=== PATIENT | female | born 1990 | race Caucasian/White ===

== ENCOUNTER 2022-07-24 06:44 | Inpatient (IN) ==
--- NOTE | 2022-07-10 12:01 | PAT Medication Instructions ---
Medication Instructions Date of Service July 10, 2022 Home Medications bupropion HCl 300 mg 24 hr tablet, extended release (Wellbutrin XL) 300 mg PO QAM escitalopram oxalate 10 mg tablet (Lexapro) 10 mg PO QAM Take morning of surgery With a small sip of water, OTHERWISE NOTHING TO EAT OR DRINK AFTER MIDNIGHT: bupropion HCl 300 mg 24 hr tablet, extended release (Wellbutrin XL) 300 mg PO QAM escitalopram oxalate 10 mg tablet (Lexapro) 10 mg PO QAM Other Notes If you have any questions please call us at [phone] or [phone] or [phone] or [phone]
--- NOTE | 2022-07-13 13:31 | Anesthesiology Consultation ---
Date of Service July 13, 2022 Assessment & Plan (1) Encounter for pre-operative examination: Chart Review Chart Review: Acceptable Risk for Surgery and Patient seen in Pre Admission Testing Egg allergy - anaphylactic reaction - Check test AM DOS Per PAT appt on 07/13/22, patient denies any recent travel or large group activities. Pt is vaccinated for Covid. Will leave to surgeon's discretion if preop Covid testing needed. Educated on importance of using Covid precautions one week prior to surgery Teaching & Discussion Pre-Anesthesia Teaching/Discussion Notes: Instructed NPO after midnight before surgery,except medications with 15 cc of water. Medication instructions provided according to the PAT guidelines. History Surgery Operation Date: 07/24/22 11:00 Proposed Procedures p Total Abdominal Hysterectomy, Preserve The Ovaries - Humberto Durham MD Height/Weight Height: 5 ft 8 in Weight: 97.1 kg Allergies Allergy/AdvReac Type Severity Reaction Status Date / Time Beef Containing Products Allergy Anaphylaxis Verified 07/10/22 10:50 chicken derived Allergy Anaphylaxis Verified 07/10/22 10:52 egg Allergy Anaphylaxis Verified 07/10/22 10:52 fish derived Allergy Anaphylaxis Verified 07/10/22 10:52 gelatin Allergy Anaphylaxis Verified 07/10/22 10:52 paroxetine [From Paxil] Allergy Hives Verified 07/10/22 10:49 peanut Allergy Anaphylaxis Verified 07/10/22 10:52 Penicillins Allergy Hives Verified 07/10/22 10:49 Sulfa (Sulfonamide Allergy Hives Verified 07/10/22 10:49 Antibiotics) Medications Home Medications Medication Instructions Recorded Confirmed Last Taken bupropion HCl 300 mg 24 hr tablet, 300 mg PO QAM 07/10/22 07/10/22 Unknown extended release (Wellbutrin XL) escitalopram oxalate 10 mg tablet 10 mg PO QAM 07/10/22 07/10/22 Unknown (Lexapro) Past Medical History Medical History Anxiety and depression Cystocele Dysmenorrhea Frequent UTI No current issues IBS (irritable bowel syndrome) Menorrhagia Multiple food allergies Uterine fibroid Exercise / Class Metabolic Activity II 4-5 Yardwork/Stairs/Walk up hill (one flight of stairs - no chest pain or SOB ) Past Family History Family History Other No family history of adverse response to anesthesia Past Surgical History Surgical History History of colonoscopy History of tubal ligation History of wisdom tooth extraction Past Anesthesia History No Hx of Anesthesia Complications and No Family Hx of Anesthesia Complications History of PONV No Hx of PONV and No Hx of Motion Sickness Social History Smoking Status: Never smoker Do You Dip or Chew Tobacco: No Hx Alcohol Use: Yes alcohol intake frequency: holidays/special occasions only Hx Substance Use: Yes substance use type: marijuana Substance Use Type Other:: medical marijuana card Review of Systems Patient denies chest pain, shortness of breath, dyspnea on exertion, reflux, cough, wheezing, palpitations. No hx of seizures, stroke, MD, apnea/snoring. No hx of blood clots or blood transfusions Physical Exam Vital Signs VITALS BP 128/80 P 91 TEMP 98.5 SP02 97% RESP 16 Constitutional no acute distress ENMT Mouth: no TMJ clicking Thyromental Distance: < 3.5 Finger Breadths (3.0) Mallampati Class: I Neck neck extension not limited Respiratory normal respiratory effort; no respiratory distress Auscultation: lungs clear to auscultation bilaterally; no wheezes Cardiovascular Rate/Rhythm: regular rate and regular rhythm Heart Sounds: no murmur Vessels: no carotid bruit Musculoskeletal Spine: no pain with cervical ROM Extremities: extremities normal to inspection Psychiatric Orientation: alert Lab Results Anesthesia Preop Results Results Anesthesia Widget: WBC 6.63 K/ul (4.8-10.8) 07/13/22 Hgb 14.0 g/dl (12.0-16.0) 07/13/22 Hct 38.7 % (37.0-47.0) 07/13/22 Plt 195 K/uL (130-400) 07/13/22 Na 138 mmol/L (136-145) 07/13/22 K 3.5 mmol/L (3.5-5.1) 07/13/22 Cl 107 mmol/L (98-107) 07/13/22 CO2 26 mmol/L (21-32) 07/13/22 BUN 10 mg/dl (6-23) 07/13/22 Creat 0.74 mg/dl (0.6-1.2) 07/13/22 Glucose Level 140 mg/dl (70-99(Fasting)) H 07/13/22 PT 11.2 Seconds (9.0-12.0) 07/13/22 PTT 28.1 Seconds (21.0-31.0) 07/13/22 INR 1.1 (0.9-1.1) 07/13/22 Blood Type A Negative 07/13/22 Antibody Screen NEGATIVE 07/13/22 COVID-19 Risk Screen Screening Information COVID-19 Screen Date: 07/13/22 Exposure 21 Days Family/Household +COVID Last 21 Days: No Exposure 10 Days Any COVID Exposure Last 10 Days: No Symptoms Last 10 Days Experienced COVID Sx Last 10 Days: No + COVID 0-90 Days COVID + in Last 0-90 Days: No Risk Plan COVID Risk Plan: No Risk Identified Patient Education COVID Preop Screening Education Complete: Yes
[~2022-07-24 06:44] MED LIST: ALLERGY Noted to ORDERED Medication SCH; CLINDAMYCIN/D5W 900 MG/50 ML BAG IV SCH; LACTATED RINGER'S 1,000 ML IV SCH; LR 15ML/HR IV SCH
[2022-07-24] MEDS ORDERED: BUPIVACAINE 0.25% PF 30 ML VIAL ONE (07:13)
--- NOTE | 2022-07-24 07:21 | History & Physical Bridge Note ---
Date of Service July 24, 2022 History & Physical Bridge Note I have examined the patient, reviewed the History & Physical and in the interval since the performance of the History & Physical I have noted the following changes of clinical significance: no changes noted
[2022-07-24] MEDS ORDERED: SCOPOLAMINE 1 MG TDSY TD ONE (07:24)
[2022-07-24] MEDS ORDERED: HEPARIN (PORCINE) 1000 UNIT/ML 10 ML (CATH LAB USE ONLY) ONE (07:49)
[2022-07-24] MEDS ORDERED: ROCURONIUM BROMIDE 10 MG/ML 5 ML VIAL IV ONE ×3 (07:52→09:39)
[2022-07-24] MEDS ORDERED: LIDOCAINE 2% MPF LOCAL 5 ML VIAL ONE (07:52)
[2022-07-24] MEDS ORDERED: PROPOFOL IV EMULSION 10 MG/ML 20 ML VIAL IV ONE (07:52)
[2022-07-24] MEDS ORDERED: DEXAMETHASONE SOD INJ 4 MG/ML VIAL ONE (07:55)
[2022-07-24] MEDS ORDERED: ONDANSETRON INJ 2 MG/ML 2 ML VIAL ONE ×3 (07:55→11:04)
[2022-07-24] MEDS ORDERED: ETOMIDATE 2 MG/ML 20 ML VIAL IV ONE (07:56)
[2022-07-24] MEDS ORDERED: diphenhydrAMINE 50 MG/ML VIAL ONE (07:58)
[2022-07-24] MEDS ORDERED: fentaNYL citrate PF 100 MCG/2 ML VIAL ONE (08:00)
[2022-07-24] MEDS ORDERED: MIDAZOLAM HCL 1 MG/ML 2ML VIAL ONE (08:00)
[2022-07-24] MEDS ORDERED: ACETAMINOPHEN 1000 MG/100 ML IV IV ONE (08:13)
[2022-07-24] MEDS ORDERED: FAMOTIDINE/PF 20 MG/2 ML VIAL IV ONE (08:13)
[2022-07-24] MEDS ORDERED: SUGAMMADEX SODIUM 200 MG/2 ML VIAL IV ONE (08:13)
[2022-07-24] MEDS ORDERED: FOSAPREPITANT DIMEGLUMINE 150 MG in SODIUM CHLORIDE 0.9% 145 ML IV SCH (08:15)
[2022-07-24] MEDS ORDERED: MoRPHine SULFATE PF 1 MG/ML 10 ML AMP/VIAL ONE (08:27)
[2022-07-24] MEDS ORDERED: ONDANSETRON INJ 2 MG/ML 2 ML VIAL IV PRN ×3 (08:46→13:39)
[2022-07-24] MEDS ORDERED: diphenhydrAMINE 50 MG/ML VIAL IV PRN (08:46)
[2022-07-24] MEDS ORDERED: NALOXONE HCL 1 MG in SODIUM CHLORIDE 0.9% 1000ML 1,000 ML IV PRN (08:46)
[2022-07-24] MEDS ORDERED: LACTATED RINGER'S 500 ML IV PRN (08:46)
[2022-07-24] MEDS ORDERED: MoRPHine SULFATE 2 MG/ML CARP IV PRN (08:46)
[2022-07-24] MEDS ORDERED: ePHEDrine sulfate 50 MG/ML AMP IV PRN ×2 (08:46→10:34)
[2022-07-24] MEDS ORDERED: NALBUPHINE HCL INJ 10 MG/ML AMP IV PRN (08:46)
[2022-07-24] MEDS ORDERED: MoRPHine SULFATE PF 1 MG/ML 10 ML AMP/VIAL INT SPINAL ONE (08:46)
[2022-07-24] MEDS ORDERED: PROMETHAZINE HCL 6.25 MG in SODIUM CHLORIDE 0.9% 50 ML IV PRN ×2 (08:46→10:34)
[2022-07-24] MEDS ORDERED: NALOXONE HCL 0.08 MG in SYRINGE 1.8 ML IV PRN (08:46)
[2022-07-24] MEDS ORDERED: NALOXONE HCL 0.4 MG/1 ML VIAL/CARP IV PRN (08:46)
[2022-07-24] MEDS ORDERED: HYDROmorphone INJ 0.5 MG/0.5 ML SYR IV PRN (08:46)
[2022-07-24] MEDS ORDERED: KETAMINE 50 MG/5 ML SYRINGE ONE (08:53)
[2022-07-24] MEDS ORDERED: SODIUM CHLORIDE 0.9% 1000ML 1,000 ML IV SCH (09:00)
[2022-07-24] MEDS ORDERED: APREPITANT 40 MG CAP PO SCH (09:00)
[2022-07-24] MEDS ORDERED: DC INTRASPINAL MORPHINE SCH (09:00)
[2022-07-24] MEDS ORDERED: NO NARCOTICS OR SEDATIVES SCH (09:00)
[2022-07-24] MEDS ORDERED: ARTIFICIAL TEARS OP OINT 3.5 GM TUBE ONE (09:50)
[2022-07-24] MEDS ORDERED: ATROPINE SULFATE 0.1 MG/ML 10ML SYR IV PRN (10:34)
[2022-07-24] MEDS ORDERED: METOCLOPRAMIDE HCL INJ 5 MG/ML 2 ML VIAL ONE (11:04)
[2022-07-24] MEDS ORDERED: KETOROLAC 30 MG/ML VIAL ONE ×2 (11:05)
[2022-07-24] MEDS ORDERED: SODIUM CHLORIDE 0.9% PF INJ 10 ML VIAL ONE (11:07)
--- NOTE | 2022-07-24 11:31 | Post Operative Brief Note ---
Immediate Post Op Note v1 Date of Surgery July 24, 2022 Pre & Post Diagnosis Operation Date: 07/24/22 08:20 Pre-Op Diagnosis: Right-sided labial mass, pelvic pain, heavy irregular vaginal bleeding, Fibroid Uterus Post-Op Diagnosis: Right-sided labial mass, pelvic pain, heavy irregular vaginal bleeding, Fibroid Uterus I identified the patient and participated in the time-out.: Yes Procedure Operation Date: 07/24/22 08:20 Actual Procedures p Total Abdominal Hysterectomy Bilateral Salpingectomy(Not Applicable) - Humberto Durham MD s Right Side Bartholin Cyst Removal(Right) - Humberto Durham MD Surgeon Humberto Durham MD Hand Spring Repairer nurse retail loan originator assistant Estimated Blood Loss 100 Findings See Below post tubal ligation endometriosis enlarged uterus Drains Loza Catheter and Dee Drain (1 inch ) Anesthesia Type General Regional Complications none
--- NOTE | 2022-07-24 12:01 | Operative Report (OR) ---
This is an operative notation of a marsupialization and packing of right-sided Bartholin cyst and tot al abdominal hysterectomy with suspension of the cuff and preservation of both ovaries. INDICATIONS FOR SURGERY: Painful mass in the right labia, hypermenorrhea, pelvic pain, dyspareunia. PREOPERATIVE DIAGNOSES: Suspected adenomyosis, suspected endometriosis. POSTOPERATIVE DIAGNOSIS: Pathology pending, endometriosis confirmed at the time of surgery. SURGEON: Daysi Durham MD LANDSCAPE ARTIST: public aid eligibility assistant. ESTIMATED BLOOD LOSS: 100 mL. ANESTHESIA: General with spinal narcotics. OPERATIVE FINDING AND PROCEDURE: The patient was brought to the OR table, correctly identified by asim fitzgerald and conversation. Spinal narcotic was administered. She was then given general anesthesia, pl aced in the candy cane stirrups. A right-sided Bartholin cyst of about 5 cm in diameter was easily v isualized. I made an incision right outside the hymenal ring, drained the cyst, sutured the edge of the opened area front to back with interrupted chromic gut suture, exteriorizing the lining of the cy st, used about 7 individual sutures and then I used 1/4-inch iodoform packing to pack the cavity and leave a small portion of the packing out through the opening. After the vaginal prep had been done, we then repositioned the patient on the OR. I rescrubbed and re gowned. We then painted the abdomen with an alcohol based sterilizing solution, allowed it to dry an d draped in the usual sterile fashion. Then, a Pfannenstiel incision was made through the abdomen, w as carried down to the anterior fascia by sharp dissection. Hemostasis was secured by electrocauteri zation. The fascia was incised transversely the underlying muscle by blunt and sharp diss ection. Recti muscles were in the midline, exposing the peritoneum, which was carefully ra ised and entered. An O'Randy-O'Ferrell self-retraining retractor was inserted into the incision. Five moist laparoto my packs were used to pack the intestines, provided adequate exposure of the pelvic cavity. What cou ld be seen at this time was tubes, status post tubal ligation, generally enlarged uterus to about 9-1 0 weeks gestational size and endometriosis involving some in the cul-de-sac and on the posterior surf chana of the uterus. The round ligaments on either side were clamped close to the uterus with a Priti and then distally, they were ligated with a transfixion suture chromic catgut and then proximal to th is an interrupted silk tie. They were then cut. The ends were cauterized, tagged. An incision was made above the vesicouterine fold. Bladder was advanced out of the operative field. Posterior leaf of the broad ligament was punched through bluntly on each side. Then, the adnexal st umps were first doubly ligated with a silk tie, then clamped with a Priti, cut away from the uterus a nd then ligated with a transfixion suture chromic catgut and tagged. The uterine vessels were then e xposed, doubly ligated with curved Melodie's, cut with a stump and then doubly ligated with a chromic gut suture along with cauterization of the stump. We then advanced the bladder out of the operative field. I used a curved Melodie to slide off the cervix and then cut with a stump and used a chromic g ut suture to suture the cardinal ligament. This was done in 2 steps because of the length of the car dinal ligament. Then, I used the electrocautery to remove the surgical specimen consisting of the uterus and cervix. I went into the vaginal cuff posteriorly and carried the dissection around the cervix, thus excising the entire specimen. I grabbed the edges of the vaginal cuff, cuff clamps and the angles with a stra ight Melodie. I then suture ligated the angles of the cuff to the stumps of the cardinal ligament by going through the vaginal mucosa front to back, anchoring it again and the vaginal cuff and then ligh t tying it to the stumps of the cardinal ligament. This was done for both the right and left side. I then did a [id number] suture chromic catgut basically anchoring in the cardinal ligaments and then suturing towards the middle of the vaginal cuff, front to back and then tying. The midportion of the vaginal cuff was whipstitched open with a continuous interlocking suture of chromic catgut. I t hen grabbed the posterior vagina with cuff clamp and then I brought together the uterosacral ligament s from the cardinal on the patient's left side, I pursestringed it to the uterosacral ligament on the right side and went to the left uterosacral ligament and pursestringed it to the cardinal on the rig ht side. I tied these together for suspension of the cuff. I then brought the round ligaments down, tied them into the stumps of the cardinal ligaments for supp ort, approximated the peritoneum front to back, burying the adnexal stumps and further elevating the vaginal cuff. The [place] drain with a safety pin was placed into the vagina and into the cul-de-sac . We washed everything clean. Hemostasis was excellent. We removed all the packs, removed the retr actors, did a careful anatomical approximation of the anterior abdominal wall. Peritoneum was closed with continuous suture of chromic catgut. Recti muscles were approximated with interrupted figure-o f-eight suture chromic catgut. The fascia was closed with continuous interlocking suture of Vicryl o n each side, tied in the midline. Subcutaneous was approximated with a running plain and skin edges were approximated with staple clips. Job ID: [id number]
[2022-07-24] MEDS: fentaNYL citrate PF 100 MCG/2 ML VIAL IV PRN ×4 (12:02→12:53)
[2022-07-24] MEDS ORDERED: SENNA 8.6 MG TAB PO PRN (13:39)
[2022-07-24] MEDS ORDERED: PROMETHAZINE HCL 25 MG in SODIUM CHLORIDE 0.9% 50 ML IV PRN (13:39)
[2022-07-24] MEDS ORDERED: MEPERIDINE HCL 50 MG/ML CARP IV PRN (13:39)
[2022-07-24] MEDS ORDERED: bisacodyL 10 MG SUPP PR PRN (13:39)
[2022-07-24] MEDS ORDERED: MAGNESIUM HYDROXIDE SUSP 30 ML UDC PO PRN (13:39)
--- NOTE | 2022-07-24 13:40 | Anesthesiology Progress Note ---
Date of Service July 24, 2022 Anesthesia Post Procedure Vital Signs Vital Signs: Temp Pulse Pulse Resp BP Pulse Ox O2 Del Method 07/24/22 13:15 55 L 17 104/60 95 Room Air 07/24/22 13:00 72 14 101/55 L 96 Room Air 07/24/22 12:45 68 18 112/61 99 Room Air 07/24/22 12:30 56 L 18 101/58 L 97 Room Air 07/24/22 12:15 36.1 C L 59 L 17 104/61 98 Room Air 07/24/22 12:10 57 L 16 105/62 99 Room Air 07/24/22 12:00 63 20 111/56 L 99 Room Air 07/24/22 11:50 36.0 C L 63 16 111/61 100 Oxymask 07/24/22 11:40 36.0 C L 59 L 22 104/66 100 Oxymask 07/24/22 11:33 36.0 C L 71 17 112/64 100 Oxymask 07/24/22 07:09 36.6 C 79 20 137/88 98 Room Air O2 Flow Rate 07/24/22 13:15 07/24/22 13:00 07/24/22 12:45 07/24/22 12:30 07/24/22 12:15 07/24/22 12:10 07/24/22 12:00 07/24/22 11:50 4 07/24/22 11:40 6 07/24/22 11:33 8 07/24/22 07:09 Pain Intensity Abdomen: Pain Intensity: 8 Transfer of Care Handoff Completed per policy Notes Mental Status: alert / awake / arousable and participated in evaluation Patient Amnestic to Procedure: Yes Nausea / Vomiting: adequately controlled Pain: adequately controlled Airway Patency, RR, SpO2: stable & adequate BP & HR: stable & adequate Hydration State: stable & adequate Neuraxial Anesthesia: was administered and sensory block resolved Anesthetic Complications: no major complications apparent and Pt Satisfied with anesthetic care
[2022-07-24] MEDS ORDERED: Nursing to Pharmacy Communication SCH (15:45)
[2022-07-24] MEDS: KETOROLAC 30 MG/ML VIAL IV PRN (20:36)
[2022-07-25] MEDS: KETOROLAC 30 MG/ML VIAL IV PRN (02:32)
[2022-07-25] MEDS ORDERED: MEPERIDINE HCL 50 MG/ML CARP IV PRN (02:48)
[2022-07-25] MEDS ORDERED: KETOROLAC 30 MG/ML VIAL IV PRN (02:48)
[2022-07-25] MEDS ORDERED: PROMETHAZINE HCL 25 MG in SODIUM CHLORIDE 0.9% 50 ML IV PRN (02:48)
[2022-07-25 06:41] LABS: Basophils # (auto) 0.01 K/uL (0-0.2); Basophils % (auto) 0.1 %; Hematocrit (blood only) 36.2 % (37.0-47.0); Hemoglobin 12.7 g/dl (12.0-16.0); Immature Granulocytes # (auto) 0.14 K/uL (0.01-0.20); Immature Granulocytes % (auto) 0.8 %; Lymphocytes # (auto) 1.17 K/uL (1.2-3.4); Lymphocytes % (auto) 6.4 %; Mean Corpuscular Hemoglobin 30.5 pg (25.0-34.0); Mean Corpuscular Hgb Conc 35.1 g/dL (32.0-36.0); Monocytes # (auto) 1.34 K/uL (0.11-0.59); Monocytes % (auto) 7.4 %; Neutrophils # (auto) 15.52 K/uL (1.40-6.50); Neutrophils % (auto) 85.3 %; Platelet Count 290 K/uL (130-400); RDW Standard Deviation 38.5 fL (36.4-46.3); Red Blood Count 4.16 M/uL (4.20-5.40); White Blood Count 18.18 K/ul (4.8-10.8)
[2022-07-25] MEDS: buPROPion XL 300 MG TABCR PO SCH (09:17)
[2022-07-25] MEDS: ESCITALOPRAM OXALATE 10 MG TAB PO SCH (09:21)
--- NOTE | 2022-07-25 09:32 | Obstetrical Progress Note ---
Date of Service July 25, 2022 Assessment & Plan Admission and Anticipated Discharge Date Admission Date: July 24, 2022 Subjective abdomen soft and non tender bowel sounds present hypoactive bandage removed incision is clean and dry no calf tenderness vaginal bleeding scant hgb 12.7 Results & Data Vital Signs (Past 12 Hours) Vital Signs Temp Pulse Resp BP Pulse Ox O2 Del Method 07/25/22 02:38 37 C 51 L 18 110/69 99 Room Air 07/25/22 00:35 16 97 07/25/22 01:16 16 98 07/24/22 23:55 18 96 07/24/22 23:34 36.9 C 51 L 18 102/59 L 100 Room Air 07/24/22 21:40 18 99 07/24/22 22:31 16 97
[2022-07-25] MEDS: oxyCODONE/ACETAMINOPHEN 5mg/325mg TAB PO PRN ×2 (15:08→19:53)
[2022-07-25] MEDS: IBUPROFEN 600 MG TAB PO PRN ×2 (15:09→19:53)
[2022-07-25] MEDS: SIMETHICONE 80 MG CHEW PO PRN (20:34)
[2022-07-26] MEDS: oxyCODONE/ACETAMINOPHEN 5mg/325mg TAB PO PRN ×5 (00:17→20:24)
[2022-07-26] MEDS: IBUPROFEN 600 MG TAB PO PRN ×5 (00:17→20:25)
[2022-07-26] MEDS: SIMETHICONE 80 MG CHEW PO PRN ×3 (05:38→19:45)
[2022-07-26 06:49] LABS: Basophils # (auto) 0.06 K/uL (0-0.2); Basophils % (auto) 0.5 %; Eosinophils # (auto) 0.02 K/uL (0-0.50); Eosinophils % (auto) 0.2 %; Hematocrit (blood only) 36.7 % (37.0-47.0); Hemoglobin 12.4 g/dl (12.0-16.0); Immature Granulocytes # (auto) 0.05 K/uL (0.01-0.20); Immature Granulocytes % (auto) 0.4 %; Mean Corpuscular Hemoglobin 30.3 pg (25.0-34.0); Mean Corpuscular Hgb Conc 33.8 g/dL (32.0-36.0); Mean Corpuscular Volume 89.7 fL (80.0-100.0); Mean Platelet Volume 11.2 fL (9.4-12.4); Monocytes # (auto) 0.94 K/uL (0.11-0.59); Monocytes % (auto) 8.4 %; Neutrophils # (auto) 7.33 K/uL (1.40-6.50); Neutrophils % (auto) 65.5 %; Platelet Count 262 K/uL (130-400); RDW Coefficient of Variation 12.5 % (11.5-14.5); RDW Standard Deviation 40.8 fL (36.4-46.3); Red Blood Count 4.09 M/uL (4.20-5.40)
[2022-07-26] MEDS: buPROPion XL 300 MG TABCR PO SCH (09:32)
[2022-07-26] MEDS: ESCITALOPRAM OXALATE 10 MG TAB PO SCH (09:33)
--- NOTE | 2022-07-26 10:16 | Obstetrical Progress Note ---
Date of Service July 26, 2022 Assessment & Plan Admission and Anticipated Discharge Date Admission Date: July 24, 2022 Subjective abdomen soft and non tender bowel sounds present hypoactive kalia drain removed from vagina two inches of packing removed from bartholin cyst no calf tenderness ambulating well bleeding scant hgb 12.4 Results & Data Vital Signs (Past 12 Hours) Vital Signs Temp Pulse Resp BP Pulse Ox O2 Del Method 07/26/22 07:00 36.5 C 76 16 130/81 98 Room Air 07/25/22 22:57 36.7 C 55 L 18 118/73 99 Room Air
[2022-07-27] MEDS: IBUPROFEN 600 MG TAB PO PRN ×3 (00:37→09:31)
[2022-07-27] MEDS: oxyCODONE/ACETAMINOPHEN 5mg/325mg TAB PO PRN ×3 (00:37→09:32)
--- NOTE | 2022-07-27 08:22 | Obstetrical Progress Note ---
Date of Service July 27, 2022 Assessment & Plan Admission and Anticipated Discharge Date Admission Date: July 24, 2022 Subjective abdomen soft and non tender passing gas incision is clean and dry no calf tenderness ambulating well vaginal bleeding scant hgb 12.4 Results & Data Vital Signs (Past 12 Hours) Vital Signs Temp Pulse Resp BP Pulse Ox O2 Del Method 07/27/22 05:06 36.8 C 66 20 113/71 97 Room Air 07/26/22 23:24 36.8 C 60 20 112/61 96 Room Air 07/26/22 22:52 36.9 C 70 18 111/64 98 Room Air
--- NOTE | 2022-07-27 08:53 | Discharge Summary (DS) ---
DATE OF ADMISSION: 07/24/2022. DATE OF DISCHARGE: 07/27/2022. HOSPITAL COURSE: This 31-year-old white female was admitted with symptoms of heavy vaginal bleeding, pelvic pain, and enlarged uterus. She also has a history of multiple drug sensitivities. On the day of admission, dorothy grullon was taken to the OR where she underwent total abdominal hysterectomy with preservation of both ovar ies and suspension of vaginal cuff. At that time, it was noted that the uterus was enlarged. Both t ubes were status post tubal ligation. She had a moderate amount of endometriosis present, mainly on the back of the uterus. Her preoperative hemoglobin was 14.0. Postoperatively, hemoglobin fell to 1 2.4. Along with her hysterectomy, she also had a marsupialization and drainage of a right-sided Jorge A bryant cyst with packing. Postoperatively, we had some difficulty with pain control. She had some mil d ileus and she was not ready for discharge until the third postoperative day when she was ambulating well, eating well and Dee drain had been removed from the vagina and some of the packing had bee n removed. She was given the usual instructions to call the office if she had a temperature over 100 or any heavy bleeding. She was instructed on how to remove the packing from the Bartholin cyst, carlito e about 2 inches out a day and cut with the scissors and she was instructed to return to the office i n 7 days for removal of daija. Job ID: [id number]
[2022-07-27] MEDS: buPROPion XL 300 MG TABCR PO SCH (09:31)
[2022-07-27] MEDS: ESCITALOPRAM OXALATE 10 MG TAB PO SCH (09:32)
== END 2022-07-27 10:41 | disposition home or self-care (01) | DRG 743 ==
LOC: ASU 06:44 → 4E1 11:42